=== PATIENT | male | born 1960 | race African-American/Black ===

== ENCOUNTER 2017-06-22 11:22 | Emergency (ER) | payer MEDICAID, OTHER ==
[~2017-06-22] VITALS: Ht 193 cm; Wt 122.7 kg
[2017-06-22] MEDS ORDERED: LIDOCAINE HCL/PF 1% 2 ML VIAL IM ONE (12:15)
[2017-06-22] MEDS ORDERED: CefTRIAXone SODIUM 1 GM/VIAL IM ONE (12:15)
[2017-06-22] MEDS ORDERED: IBUPROFEN 800 MG TABLET PO ONE (12:15)
[2017-06-22 12:30] VITALS: BP 141/66
== END 2017-06-22 13:06 | disposition home or self-care (01) ==
LOC: EMS 11:23
DX: L02.415 Cutaneous abscess of right lower limb (principal); L03.115 Cellulitis of right lower limb; L08.9 Local infection of the skin and subcutaneous tissue, unspecified; F17.210 Nicotine dependence, cigarettes, uncomplicated
CPT/HCPCS: 96372; 99283; J0696; J3490

== ENCOUNTER 2018-07-17 17:59 | Inpatient (IN) | payer MEDICAID, OTHER ==
[~2018-07-17] VITALS: Ht 182.9 cm; Wt 108.2 kg
[2018-07-17 19:57] LABS: BASOPHILS % (AUTO) 1.4 % (0.0-2.0); EOSINOPHILS % (AUTO) 4.7 % (1.0-6.0); HEMATOCRIT 43.4 % (41-53); HEMOGLOBIN 14.9 g/dL (13.5-17.5); LYMPHOCYTES # (AUTO) 1.6 K/uL (1.0-4.8); MEAN CORPUSCULAR HEMOGLOBIN 31.6 pg (26.0-34.0); MEAN CORPUSCULAR HGB CONC 34.3 G/dL (31.0-37.0); MEAN CORPUSCULAR VOLUME 92 fL (80-100); MONOCYTES # (AUTO) 0.5 K/uL (0.1-1.0); MONOCYTES % (AUTO) 7.3 % (2.0-9.0); NEUTROPHILS # (AUTO) 4.3 K/uL (1.8-7.7); NEUTROPHILS % (AUTO) 62.6 % (40.0-70.0); PLATELET COUNT (AUTO) 262 K/uL (150-450); RED BLOOD CELL COUNT(AUTO) 4.72 MIL/uL (4.50-5.90); RED CELL DISTRIBUTION WIDTH 13.8 % (11.5-14.5)
[2018-07-17 20:11] LABS: ANION GAP 7 mmol/L (8-16); CALCIUM, TOTAL 9.1 mg/dL (8.8-10.5); CARBON DIOXIDE 29 mmol/L (22-29); CHLORIDE 104 mmol/L (98-107); CREATININE 1.08 mg/dL (0.60-1.30); GLOMERULAR FILTR. RATE CALC > 60 mL/min (>60); GLUCOSE,RANDOM 105 mg/dL (70-110); POTASSIUM 3.8 mmol/L (3.5-5.1); SODIUM SERUM 140 mmol/L (136-145); UREA NITROGEN, BLOOD 17 mg/dL (7-18)
[2018-07-17 20:17] LABS: ALANINE AMINOTRANSFERASE 65 U/L (12-78); ALBUMIN 3.2 g/dL (3.4-5.0); ALKALINE PHOSPHATASE 65 U/L (46-116); ASPARTATE AMINOTRANSFERASE 81 U/L (15-37); BILIRUBIN,TOTAL 0.7 mg/dL (0.1-1.0); TOTAL PROTEIN, SERUM 7.3 g/dL (6.4-8.2)
[2018-07-17] MEDS ORDERED: HALOPERIDOL 5 MG TABLET PO PRN (20:45)
[2018-07-17] MEDS ORDERED: LORazepam 2 MG TABLET PO PRN (20:45)
[2018-07-17] MEDS ORDERED: ZOLPIDEM TARTRATE 10 MG TABLET PO PRN (20:45)
[2018-07-17 21:34] LABS: AMPHET/METH SCREEN,URINE NEGATIVE (NEGATIVE); BARBITURATE SCREEN, URINE NEGATIVE (NEGATIVE); BENZODIAZEPINES SCREEN,URINE NEGATIVE (NEGATIVE); CANNABINOID SCREEN,URINE POSITIVE (NEGATIVE); COCAINE SCREEN,URINE POSITIVE (NEGATIVE); METHADONE SCREEN, URINE NEGATIVE (NEGATIVE); OPIATE SCREEN,URINE NEGATIVE (NEGATIVE)
[2018-07-17 21:36] LABS: PHENCYCLIDINE SCREEN,URINE NEGATIVE (NEGATIVE)
[2018-07-17 21:48] VITALS: BP 121/69
[2018-07-18 06:04] VITALS: BP 121/73
[2018-07-18 07:37] LABS: HEMOGLOBIN A1C 5.6 % (4.5-6.2)
[2018-07-18 07:49] LABS: CHOL/HDL RATIO 2.6 (4.2-7.3); FREE T4 (FREE THYROXINE) 0.73 ng/dL (0.76-1.46); THYROID STIMULATING HORMONE 1.68 uIU/mL (0.36-3.74)
[2018-07-18 08:22] VITALS: BP 129/97
[2018-07-18 17:00] VITALS: BP 128/72
[2018-07-18] MEDS: RisperiDONE 1 MG TABLET PO SCH (17:26)
[2018-07-19 08:44] VITALS: BP 126/68
[2018-07-19] MEDS: RisperiDONE 1 MG TABLET PO SCH ×2 (08:53→17:27)
[2018-07-19] MEDS: SERTRALINE HCL 100 MG TABLET PO SCH (08:53)
[2018-07-19 17:30] VITALS: BP 124/71
[2018-07-20 06:13] VITALS: BP 115/62
[2018-07-20 06:27] LABS: ALANINE AMINOTRANSFERASE 45 U/L (12-78); ALBUMIN 3.1 g/dL (3.4-5.0); ALKALINE PHOSPHATASE 60 U/L (46-116); ANION GAP 8 mmol/L (8-16); ASPARTATE AMINOTRANSFERASE 29 U/L (15-37); BILIRUBIN,TOTAL 0.6 mg/dL (0.1-1.0); CALCIUM, TOTAL 9.2 mg/dL (8.8-10.5); CARBON DIOXIDE 28 mmol/L (22-29); CHLORIDE 103 mmol/L (98-107); CREATININE 1.06 mg/dL (0.60-1.30); GLOMERULAR FILTR. RATE CALC > 60 mL/min (>60); GLUCOSE,RANDOM 101 mg/dL (70-110); POTASSIUM 4.1 mmol/L (3.5-5.1); SODIUM SERUM 139 mmol/L (136-145); TOTAL PROTEIN, SERUM 7.3 g/dL (6.4-8.2); UREA NITROGEN, BLOOD 11 mg/dL (7-18)
[2018-07-20] MEDS: SERTRALINE HCL 100 MG TABLET PO SCH (08:53)
[2018-07-20] MEDS: RisperiDONE 1 MG TABLET PO SCH ×2 (08:53→16:51)
[2018-07-20] MEDS ORDERED: ACETAMINOPHEN 325 MG TABLET PO PRN (09:00)
[2018-07-20 09:18] VITALS: BP 120/68
[2018-07-20 17:00] VITALS: BP 135/62
[2018-07-21 06:46] VITALS: BP 120/73
[2018-07-21 08:36] VITALS: BP 146/65
[2018-07-21] MEDS: RisperiDONE 1 MG TABLET PO SCH (09:13)
[2018-07-21] MEDS: SERTRALINE HCL 100 MG TABLET PO SCH (09:13)
[2018-07-21] MEDS ORDERED: SERT100T12 PO (11:59)
[2018-07-21] MEDS ORDERED: RISP1 PO (11:59)
== END 2018-07-21 14:20 | disposition home or self-care (01) | DRG 750 ==
LOC: EMS 17:59 → 3EI 20:27
PROVIDERS: ADMIT Psychiatry & Neurology Psychiatry; ATTEND Psychiatry & Neurology Psychiatry
DX: F25.1 Schizoaffective disorder, depressive type (principal); R45.851 Suicidal ideations; Z91.14 Patient's other noncompliance with medication regimen; F12.10 Cannabis abuse, uncomplicated; F14.10 Cocaine abuse, uncomplicated; F41.9 Anxiety disorder, unspecified; K58.9 Irritable bowel syndrome, unspecified; F32.9 Major depressive disorder, single episode, unspecified; R79.89 Other specified abnormal findings of blood chemistry; M19.90 Unspecified osteoarthritis, unspecified site; N18.9 Chronic kidney disease, unspecified; F17.210 Nicotine dependence, cigarettes, uncomplicated; Z91.5 Personal history of self-harm; Z79.899 Other long term (current) drug therapy
CPT/HCPCS: 80074; 83036; 84439; 84443; G0480

== ENCOUNTER 2018-10-07 15:49 | Emergency (ER) | payer MEDICAID, OTHER ==
[~2018-10-07] VITALS: Ht 193 cm; Wt 120.5 kg
[~2018-10-07 15:49] MED LIST: RISP1 PO; SERT100T12 PO
[2018-10-07 18:34] VITALS: BP 128/86
== END 2018-10-07 18:46 | disposition home or self-care (01) ==
LOC: EMS 15:51
DX: Z01.812 Encounter for preprocedural laboratory examination (principal); F32.9 Major depressive disorder, single episode, unspecified; F20.9 Schizophrenia, unspecified; F17.210 Nicotine dependence, cigarettes, uncomplicated
CPT/HCPCS: 86480

== ENCOUNTER 2019-03-13 08:23 | Inpatient (IN) | payer MEDICAID, OTHER ==
[~2019-03-13] VITALS: Ht 193 cm; Wt 107.2 kg
[2019-03-13 09:11] LABS: BASOPHILS % (AUTO) 0.9 % (0.0-2.0); EOSINOPHILS % (AUTO) 7.4 % (1.0-6.0); HEMATOCRIT 45.1 % (41-53); HEMOGLOBIN 14.9 g/dL (13.5-17.5); LYMPHOCYTES # (AUTO) 1.2 K/uL (1.0-4.8); LYMPHOCYTES % (AUTO) 19.2 % (22.0-44.0); MEAN CORPUSCULAR HEMOGLOBIN 30.7 pg (26.0-34.0); MEAN CORPUSCULAR HGB CONC 33.1 G/dL (31.0-37.0); MEAN CORPUSCULAR VOLUME 93 fL (80-100); MONOCYTES # (AUTO) 0.5 K/uL (0.1-1.0); MONOCYTES % (AUTO) 8.4 % (2.0-9.0); NEUTROPHILS # (AUTO) 3.9 K/uL (1.8-7.7); NEUTROPHILS % (AUTO) 64.1 % (40.0-70.0); PLATELET COUNT (AUTO) 241 K/uL (150-450); RED BLOOD CELL COUNT(AUTO) 4.85 MIL/uL (4.50-5.90)
[2019-03-13 09:18] LABS: ANION GAP 6 mmol/L (8-16); CALCIUM, TOTAL 8.9 mg/dL (8.8-10.5); CARBON DIOXIDE 29 mmol/L (22-29); CHLORIDE 104 mmol/L (98-107); CREATININE 1.16 mg/dL (0.60-1.30); GLOMERULAR FILTR. RATE CALC > 60 mL/min (>60); GLUCOSE,RANDOM 82 mg/dL (70-110); POTASSIUM 3.7 mmol/L (3.5-5.1); SODIUM SERUM 139 mmol/L (136-145); UREA NITROGEN, BLOOD 10 mg/dL (7-18)
[2019-03-13 09:24] LABS: ALANINE AMINOTRANSFERASE 31 U/L (12-78); ALBUMIN 3.6 g/dL (3.4-5.0); ALKALINE PHOSPHATASE 58 U/L (46-116); ASPARTATE AMINOTRANSFERASE 28 U/L (15-37); BILIRUBIN,TOTAL 1.1 mg/dL (0.1-1.0)
[2019-03-13 10:43] LABS: AMPHET/METH SCREEN,URINE NEGATIVE (NEGATIVE); BARBITURATE SCREEN, URINE NEGATIVE (NEGATIVE); BENZODIAZEPINES SCREEN,URINE NEGATIVE (NEGATIVE); CANNABINOID SCREEN,URINE NEGATIVE (NEGATIVE); COCAINE SCREEN,URINE POSITIVE (NEGATIVE); METHADONE SCREEN, URINE NEGATIVE (NEGATIVE); OPIATE SCREEN,URINE NEGATIVE (NEGATIVE)
[2019-03-13 10:51] LABS: PHENCYCLIDINE SCREEN,URINE NEGATIVE (NEGATIVE)
[2019-03-13] MEDS ORDERED: ZOLPIDEM TARTRATE 10 MG TABLET PO PRN (11:45)
[2019-03-13] MEDS ORDERED: ONDANSETRON HCL 4 MG TABLET PO PRN (22:15)
[2019-03-13] MEDS ORDERED: ALBUTEROL SULFATE HFA 90 MCG/PUFF 8 GM INHALER IH PRN (22:15)
[2019-03-13] MEDS ORDERED: CloNIDine HCL 0.1 MG TABLET PO PRN (22:15)
[2019-03-13] MEDS ORDERED: MAGNESIUM HYDROXIDE SUSPENSION 30 ML UDCUP PO PRN (22:15)
[2019-03-13] MEDS ORDERED: GuaiFENesin/D-METHORPHAN [SUGAR-FREE] 200-20MG/10 ML SYRUP UDCUP PO PRN (22:15)
[2019-03-13] MEDS ORDERED: ACETAMINOPHEN 325 MG TABLET PO PRN (22:15)
[2019-03-13] MEDS ORDERED: NICOTINE 14 MG/24 HOUR PATCH TD PRN (22:15)
[2019-03-13] MEDS ORDERED: IBUPROFEN 400 MG TABLET PO PRN (22:15)
[2019-03-13] MEDS ORDERED: DOCUSATE SODIUM 100 MG CAPSULE PO PRN (22:15)
[2019-03-13] MEDS ORDERED: LOPERAMIDE HCL 2 MG CAPSULE PO PRN (22:15)
[2019-03-13] MEDS ORDERED: MAG HYDROX/AL HYDROX/SIMETH ES 30 ML SUSPENSION UDCUP PO PRN (22:15)
[2019-03-13] MEDS ORDERED: PETROLATUM,WHITE 28 GM JELLY TP PRN (22:15)
[2019-03-14 09:15] VITALS: BP 128/82
[2019-03-14] MEDS: LORazepam 2 MG TABLET PO PRN (09:17)
[2019-03-14] MEDS: HALOPERIDOL 5 MG TABLET PO PRN (09:17)
[2019-03-14] MEDS: SERTRALINE HCL 100 MG TABLET PO SCH (14:59)
[2019-03-14] MEDS: RisperiDONE 1 MG TABLET PO SCH (14:59)
[2019-03-14 16:27] VITALS: BP 115/59
[2019-03-15 10:00] VITALS: BP 126/72
[2019-03-15] MEDS: HALOPERIDOL 5 MG TABLET PO PRN (10:28)
[2019-03-15] MEDS: LORazepam 2 MG TABLET PO PRN (10:28)
[2019-03-15] MEDS: RisperiDONE 1 MG TABLET PO SCH (10:29)
[2019-03-15] MEDS: SERTRALINE HCL 100 MG TABLET PO SCH (10:29)
[2019-03-15 18:51] VITALS: BP 110/55
[2019-03-16] MEDS: RisperiDONE 1 MG TABLET PO SCH (08:34)
[2019-03-16] MEDS: HALOPERIDOL 5 MG TABLET PO PRN (08:34)
[2019-03-16] MEDS: SERTRALINE HCL 100 MG TABLET PO SCH (08:35)
[2019-03-16] MEDS: LORazepam 2 MG TABLET PO PRN (08:35)
[2019-03-16 12:41] VITALS: BP 129/61
== END 2019-03-16 15:00 | disposition home or self-care (01) | DRG 750 ==
LOC: EMS 08:25 → 3EI 12:44
PROVIDERS: ADMIT Psychiatry & Neurology Child & Adolescent Psychiatry; ATTEND Psychiatry & Neurology Child & Adolescent Psychiatry
DX: F25.9 Schizoaffective disorder, unspecified (principal); Z59.0 Homelessness; R45.851 Suicidal ideations; F14.10 Cocaine abuse, uncomplicated; Z91.14 Patient's other noncompliance with medication regimen; F17.200 Nicotine dependence, unspecified, uncomplicated; Z71.6 Tobacco abuse counseling; Z71.41 Alcohol abuse counseling and surveillance of alcoholic; Z91.5 Personal history of self-harm; K58.9 Irritable bowel syndrome, unspecified; F41.9 Anxiety disorder, unspecified; F32.9 Major depressive disorder, single episode, unspecified; Z79.899 Other long term (current) drug therapy
CPT/HCPCS: G0480

== ENCOUNTER 2019-04-21 08:29 | Inpatient (IN) | payer MEDICAID, OTHER ==
[~2019-04-21] VITALS: Ht 193 cm; Wt 106.0 kg
[2019-04-21 09:00] LABS: BASOPHILS % (AUTO) 0.8 % (0.0-2.0); EOSINOPHILS % (AUTO) 8.4 % (1.0-6.0); HEMATOCRIT 43.8 % (41-53); HEMOGLOBIN 14.8 g/dL (13.5-17.5); LYMPHOCYTES # (AUTO) 1.5 K/uL (1.0-4.8); LYMPHOCYTES % (AUTO) 26.6 % (22.0-44.0); MEAN CORPUSCULAR HEMOGLOBIN 30.8 pg (26.0-34.0); MEAN CORPUSCULAR HGB CONC 33.9 G/dL (31.0-37.0); MEAN CORPUSCULAR VOLUME 91 fL (80-100); MONOCYTES # (AUTO) 0.4 K/uL (0.1-1.0); MONOCYTES % (AUTO) 7.3 % (2.0-9.0); NEUTROPHILS # (AUTO) 3.3 K/uL (1.8-7.7); NEUTROPHILS % (AUTO) 56.9 % (40.0-70.0); PLATELET COUNT (AUTO) 246 K/uL (150-450); RED BLOOD CELL COUNT(AUTO) 4.81 MIL/uL (4.50-5.90)
[2019-04-21 09:01] LABS: APPEARANCE,URINE CLEAR (CLEAR); BILIRUBIN,URINE NEGATIVE (NEGATIVE); GLUCOSE, URINE (UA) NEGATIVE (NEGATIVE); KETONES,URINE NEGATIVE (NEGATIVE); LEUKOCYTE ESTERASE ,URINE NEGATIVE (NEGATIVE); NITRATE,URINE NEGATIVE (NEGATIVE); OCCULT BLOOD,URINE TRACE (NEGATIVE); PROTEIN,URINE NEGATIVE (NEGATIVE)
[2019-04-21 09:17] LABS: ANION GAP 7 mmol/L (8-16); CALCIUM, TOTAL 9.5 mg/dL (8.8-10.5); CARBON DIOXIDE 28 mmol/L (22-29); CHLORIDE 104 mmol/L (98-107); CREATININE 1.11 mg/dL (0.60-1.30); GLOMERULAR FILTR. RATE CALC > 60 mL/min (>60); GLUCOSE,RANDOM 96 mg/dL (70-110); POTASSIUM 3.6 mmol/L (3.5-5.1); SODIUM SERUM 139 mmol/L (136-145)
[2019-04-21 09:17] LABS: BACTERIA,URINE None Seen /HPF (None Seen); RBC,URINE 0-2 /HPF (0-2); SQUAMOUS EPITHELIAL CELL,UR Few /LPF (None Seen); WBC,URINE 0-2 /HPF (0-5)
[2019-04-21 09:28] LABS: ALANINE AMINOTRANSFERASE 28 U/L (12-78); ALBUMIN 3.5 g/dL (3.4-5.0); ALKALINE PHOSPHATASE 63 U/L (46-116); BILIRUBIN,TOTAL 0.7 mg/dL (0.1-1.0); TOTAL PROTEIN, SERUM 7.3 g/dL (6.4-8.2); UREA NITROGEN, BLOOD 11 mg/dL (7-18)
[2019-04-21 09:37] LABS: ASPARTATE AMINOTRANSFERASE 25 U/L (15-37)
[2019-04-21 09:52] LABS: AMPHET/METH SCREEN,URINE NEGATIVE (NEGATIVE); BARBITURATE SCREEN, URINE NEGATIVE (NEGATIVE); BENZODIAZEPINES SCREEN,URINE NEGATIVE (NEGATIVE); CANNABINOID SCREEN,URINE POSITIVE (NEGATIVE); COCAINE SCREEN,URINE POSITIVE (NEGATIVE); METHADONE SCREEN, URINE NEGATIVE (NEGATIVE); OPIATE SCREEN,URINE NEGATIVE (NEGATIVE)
[2019-04-21 09:56] LABS: PHENCYCLIDINE SCREEN,URINE NEGATIVE (NEGATIVE)
[2019-04-21] MEDS ORDERED: HALOPERIDOL 5 MG TABLET PO PRN (10:15)
[2019-04-21] MEDS ORDERED: LORazepam 2 MG TABLET PO PRN (10:15)
[2019-04-21] MEDS ORDERED: ZOLPIDEM TARTRATE 10 MG TABLET PO PRN (10:15)
[2019-04-21 12:26] VITALS: BP 137/65
[2019-04-21 12:59] VITALS: BP 137/65
[2019-04-21 17:01] VITALS: BP 132/81
[2019-04-22 06:47] LABS: CHOL/HDL RATIO 3.4 (4.2-7.3); FREE T4 (FREE THYROXINE) 0.87 ng/dL (0.76-1.46); THYROID STIMULATING HORMONE 3.64 uIU/mL (0.36-3.74)
[2019-04-22 08:46] VITALS: BP 138/82
[2019-04-22] MEDS: NICOTINE 21 MG/24 HOUR PATCH TD SCH (09:03)
[2019-04-22] MEDS ORDERED: LOPERAMIDE HCL 2 MG CAPSULE PO PRN (11:00)
[2019-04-22] MEDS ORDERED: ACETAMINOPHEN 325 MG TABLET PO PRN (11:00)
[2019-04-22] MEDS ORDERED: GuaiFENesin/D-METHORPHAN [SUGAR-FREE] 200-20MG/10 ML SYRUP UDCUP PO PRN (11:00)
[2019-04-22] MEDS ORDERED: MAGNESIUM HYDROXIDE SUSPENSION 30 ML UDCUP PO PRN (11:00)
[2019-04-22] MEDS ORDERED: MAG HYDROX/AL HYDROX/SIMETH ES 30 ML SUSPENSION UDCUP PO PRN (11:00)
[2019-04-22] MEDS ORDERED: DOCUSATE SODIUM 100 MG CAPSULE PO PRN (11:00)
[2019-04-22] MEDS ORDERED: PETROLATUM,WHITE 28 GM JELLY TP PRN (11:00)
[2019-04-22] MEDS ORDERED: NICOTINE 14 MG/24 HOUR PATCH TD PRN (11:00)
[2019-04-22] MEDS ORDERED: ALBUTEROL SULFATE HFA 90 MCG/PUFF 8 GM INHALER IH PRN (11:00)
[2019-04-22] MEDS ORDERED: CloNIDine HCL 0.1 MG TABLET PO PRN (11:00)
[2019-04-22] MEDS ORDERED: ONDANSETRON HCL 4 MG TABLET PO PRN (11:00)
[2019-04-22] MEDS ORDERED: IBUPROFEN 400 MG TABLET PO PRN (11:00)
[2019-04-22] MEDS ORDERED: BUPR-93 PO (12:13)
[2019-04-22] MEDS ORDERED: OLAN5TAB2 PO (12:13)
[2019-04-22] MEDS: BuPROPion HCL XL 150 MG ER TABLET PO SCH (14:01)
[2019-04-22] MEDS: OLANZapine 5 MG TABLET PO SCH (17:47)
[2019-04-22 17:56] VITALS: BP 119/67
[2019-04-23] MEDS ORDERED: INFLUENZA VIRUS VACCINE QVS 2019-20 (3YR+)/PF 60 MCG/0.5 ML SYRINGE IM ONE (08:00)
[2019-04-23 08:44] VITALS: BP 134/62
[2019-04-23] MEDS: OLANZapine 5 MG TABLET PO SCH ×2 (09:20→17:02)
[2019-04-23] MEDS: BuPROPion HCL XL 150 MG ER TABLET PO SCH (09:20)
[2019-04-23] MEDS: NICOTINE 21 MG/24 HOUR PATCH TD SCH (09:24)
[2019-04-23 16:54] VITALS: BP 126/71
[2019-04-24] MEDS: OLANZapine 5 MG TABLET PO SCH (09:13)
[2019-04-24] MEDS: BuPROPion HCL XL 150 MG ER TABLET PO SCH (09:14)
[2019-04-24] MEDS ORDERED: BUPR-47 PO (09:17)
[2019-04-24] MEDS ORDERED: OLAN5TAB27 PO (09:17)
[2019-04-24 09:18] VITALS: BP 150/66
[2019-04-24] MEDS: NICOTINE 21 MG/24 HOUR PATCH TD SCH (09:18)
== END 2019-04-24 11:45 | disposition home or self-care (01) | DRG 750 ==
LOC: EMS 08:30 → 3EI 10:48
PROVIDERS: ADMIT Psychiatry & Neurology Child & Adolescent Psychiatry; ATTEND Psychiatry & Neurology Child & Adolescent Psychiatry
DX: F25.1 Schizoaffective disorder, depressive type (principal); E87.2 Acidosis; R45.851 Suicidal ideations; Z23 Encounter for immunization; F10.10 Alcohol abuse, uncomplicated; F12.10 Cannabis abuse, uncomplicated; F14.10 Cocaine abuse, uncomplicated; F17.200 Nicotine dependence, unspecified, uncomplicated; K21.9 Gastro-esophageal reflux disease without esophagitis; K44.9 Diaphragmatic hernia without obstruction or gangrene; K58.9 Irritable bowel syndrome, unspecified; Z79.899 Other long term (current) drug therapy; F41.9 Anxiety disorder, unspecified
CPT/HCPCS: 84439; 84443; 90471; 90686; G0480

== ENCOUNTER 2019-04-28 07:10 | Inpatient (IN) | payer MEDICAID, OTHER ==
[~2019-04-28] VITALS: Ht 193 cm; Wt 108.4 kg
[~2019-04-28 07:10] MED LIST changes: +BUPR-47 PO; +OLAN5TAB27 PO; -RISP1 PO; -SERT100T12 PO
[2019-04-28] MEDS ORDERED: RISP1 PO (07:15)
[2019-04-28] MEDS ORDERED: SERT50TA12 PO (07:15)
[2019-04-28 07:58] LABS: APPEARANCE,URINE CLEAR (CLEAR); BILIRUBIN,URINE NEGATIVE (NEGATIVE); GLUCOSE, URINE (UA) NEGATIVE (NEGATIVE); KETONES,URINE NEGATIVE (NEGATIVE); LEUKOCYTE ESTERASE ,URINE NEGATIVE (NEGATIVE); NITRATE,URINE NEGATIVE (NEGATIVE); OCCULT BLOOD,URINE TRACE (NEGATIVE); PH,URINE 5.5 (5.0-8.0); PROTEIN,URINE NEGATIVE (NEGATIVE); UROBILINOGEN,URINE 0.2 mg/dL (<=1.0)
[2019-04-28 08:08] LABS: BASOPHILS % (AUTO) 1.1 % (0.0-2.0); EOSINOPHILS % (AUTO) 5.7 % (1.0-6.0); HEMATOCRIT 42.5 % (41-53); HEMOGLOBIN 14.3 g/dL (13.5-17.5); LYMPHOCYTES # (AUTO) 1.5 K/uL (1.0-4.8); LYMPHOCYTES % (AUTO) 21.7 % (22.0-44.0); MEAN CORPUSCULAR HGB CONC 33.6 G/dL (31.0-37.0); MEAN CORPUSCULAR VOLUME 93 fL (80-100); MONOCYTES # (AUTO) 0.7 K/uL (0.1-1.0); MONOCYTES % (AUTO) 10.5 % (2.0-9.0); NEUTROPHILS # (AUTO) 4.1 K/uL (1.8-7.7); PLATELET COUNT (AUTO) 221 K/uL (150-450); RED CELL DISTRIBUTION WIDTH 14.2 % (11.5-14.5)
[2019-04-28 08:11] LABS: AMPHET/METH SCREEN,URINE NEGATIVE (NEGATIVE); BARBITURATE SCREEN, URINE NEGATIVE (NEGATIVE); BENZODIAZEPINES SCREEN,URINE NEGATIVE (NEGATIVE); CANNABINOID SCREEN,URINE POSITIVE (NEGATIVE); COCAINE SCREEN,URINE POSITIVE (NEGATIVE); METHADONE SCREEN, URINE NEGATIVE (NEGATIVE); OPIATE SCREEN,URINE NEGATIVE (NEGATIVE)
[2019-04-28 08:13] LABS: BACTERIA,URINE None Seen /HPF (None Seen); PHENCYCLIDINE SCREEN,URINE NEGATIVE (NEGATIVE); RBC,URINE 0-2 /HPF (0-2); SQUAMOUS EPITHELIAL CELL,UR Few /LPF (None Seen)
[2019-04-28 08:19] LABS: ANION GAP 8 mmol/L (8-16); CALCIUM, TOTAL 8.8 mg/dL (8.8-10.5); CARBON DIOXIDE 30 mmol/L (22-29); CHLORIDE 106 mmol/L (98-107); CREATININE 1.26 mg/dL (0.60-1.30); GLOMERULAR FILTR. RATE CALC > 60 mL/min (>60); GLUCOSE,RANDOM 82 mg/dL (70-110); POTASSIUM 3.9 mmol/L (3.5-5.1); SODIUM SERUM 144 mmol/L (136-145); UREA NITROGEN, BLOOD 17 mg/dL (7-18)
[2019-04-28 08:22] LABS: ALANINE AMINOTRANSFERASE 39 U/L (12-78); ALBUMIN 3.4 g/dL (3.4-5.0); ALKALINE PHOSPHATASE 62 U/L (46-116); ASPARTATE AMINOTRANSFERASE 39 U/L (15-37); BILIRUBIN,TOTAL 0.5 mg/dL (0.1-1.0); TOTAL PROTEIN, SERUM 7.1 g/dL (6.4-8.2)
[2019-04-28] MEDS: OLANZapine 5 MG TABLET PO SCH ×2 (09:15→16:44)
[2019-04-28] MEDS ORDERED: LORazepam 2 MG TABLET PO PRN (09:15)
[2019-04-28] MEDS ORDERED: HALOPERIDOL 5 MG TABLET PO PRN (09:15)
[2019-04-28] MEDS ORDERED: ZOLPIDEM TARTRATE 10 MG TABLET PO PRN (09:15)
[2019-04-28] MEDS: RisperiDONE 1 MG TABLET PO ONE ×2 (09:15→12:57)
[2019-04-28 10:56] VITALS: BP 131/71
[2019-04-28] MEDS ORDERED: ONDANSETRON HCL 4 MG TABLET PO PRN (11:45)
[2019-04-28] MEDS ORDERED: GuaiFENesin/D-METHORPHAN [SUGAR-FREE] 200-20MG/10 ML SYRUP UDCUP PO PRN (11:45)
[2019-04-28] MEDS ORDERED: MAGNESIUM HYDROXIDE SUSPENSION 30 ML UDCUP PO PRN (11:45)
[2019-04-28] MEDS ORDERED: PETROLATUM,WHITE 28 GM JELLY TP PRN (11:45)
[2019-04-28] MEDS ORDERED: ALBUTEROL SULFATE HFA 90 MCG/PUFF 8 GM INHALER IH PRN (11:45)
[2019-04-28] MEDS ORDERED: MAG HYDROX/AL HYDROX/SIMETH ES 30 ML SUSPENSION UDCUP PO PRN (11:45)
[2019-04-28] MEDS ORDERED: NICOTINE 14 MG/24 HOUR PATCH TD PRN (11:45)
[2019-04-28] MEDS ORDERED: CloNIDine HCL 0.1 MG TABLET PO PRN (11:45)
[2019-04-28] MEDS ORDERED: LOPERAMIDE HCL 2 MG CAPSULE PO PRN (11:45)
[2019-04-28] MEDS ORDERED: ACETAMINOPHEN 325 MG TABLET PO PRN (11:45)
[2019-04-28] MEDS ORDERED: DOCUSATE SODIUM 100 MG CAPSULE PO PRN (11:45)
[2019-04-28 18:09] VITALS: BP 132/59
[2019-04-29 01:20] VITALS: BP 135/76
[2019-04-29 04:52] VITALS: BP 136/75
[2019-04-29] MEDS: IBUPROFEN 400 MG TABLET PO PRN (04:58)
[2019-04-29 06:11] LABS: BASOPHILS % (AUTO) 0.9 % (0.0-2.0); EOSINOPHILS % (AUTO) 9.8 % (1.0-6.0); HEMATOCRIT 42.2 % (41-53); LYMPHOCYTES # (AUTO) 1.7 K/uL (1.0-4.8); LYMPHOCYTES % (AUTO) 32.7 % (22.0-44.0); MEAN CORPUSCULAR HEMOGLOBIN 30.6 pg (26.0-34.0); MEAN CORPUSCULAR HGB CONC 33.1 G/dL (31.0-37.0); MEAN CORPUSCULAR VOLUME 92 fL (80-100); MONOCYTES # (AUTO) 0.4 K/uL (0.1-1.0); MONOCYTES % (AUTO) 8.7 % (2.0-9.0); NEUTROPHILS # (AUTO) 2.4 K/uL (1.8-7.7); NEUTROPHILS % (AUTO) 47.9 % (40.0-70.0); PLATELET COUNT (AUTO) 216 K/uL (150-450); RED BLOOD CELL COUNT(AUTO) 4.57 MIL/uL (4.50-5.90); RED CELL DISTRIBUTION WIDTH 14.3 % (11.5-14.5)
[2019-04-29 06:22] LABS: HEMOGLOBIN A1C 6.1 % (4.5-6.2)
[2019-04-29 06:34] LABS: ALANINE AMINOTRANSFERASE 24 U/L (12-78); ALBUMIN 2.9 g/dL (3.4-5.0); ALKALINE PHOSPHATASE 55 U/L (46-116); ANION GAP 7 mmol/L (8-16); ASPARTATE AMINOTRANSFERASE 23 U/L (15-37); BILIRUBIN,TOTAL 0.4 mg/dL (0.1-1.0); CALCIUM, TOTAL 8.6 mg/dL (8.8-10.5); CARBON DIOXIDE 27 mmol/L (22-29); CHLORIDE 107 mmol/L (98-107); CHOL/HDL RATIO 3.8 (4.2-7.3); CHOLESTEROL 171 mg/dL (131-200); CREATININE 1.21 mg/dL (0.60-1.30); GLOMERULAR FILTR. RATE CALC > 60 mL/min (>60); GLUCOSE,RANDOM 157 mg/dL (70-110); HDL CHOLESTEROL 45 mg/dL (40-60); LDL CHOL (CALC.) 110 mg/dL (0-130); POTASSIUM 3.8 mmol/L (3.5-5.1); SODIUM SERUM 141 mmol/L (136-145); THYROID STIMULATING HORMONE 2.75 uIU/mL (0.36-3.74); TOTAL PROTEIN, SERUM 5.7 g/dL (6.4-8.2); TRIGLYCERIDES 79 mg/dL (15-150); UREA NITROGEN, BLOOD 12 mg/dL (7-18)
[2019-04-29 08:00] VITALS: BP 133/75
[2019-04-29] MEDS: OLANZapine 5 MG TABLET PO SCH ×2 (09:57→17:25)
[2019-04-29] MEDS: BuPROPion HCL XL 150 MG ER TABLET PO SCH (09:57)
[2019-04-29] MEDS: SERTRALINE HCL 50 MG TABLET PO SCH (09:58)
[2019-04-29 17:17] VITALS: BP 131/81
[2019-04-29] MEDS: MUPIROCIN CALCIUM 2% 22 GM OINTMENT NASAL SCH (17:25)
[2019-04-30 02:12] VITALS: BP 140/81
[2019-04-30] MEDS: BuPROPion HCL XL 150 MG ER TABLET PO SCH (09:10)
[2019-04-30] MEDS: OLANZapine 5 MG TABLET PO SCH ×2 (09:10→17:01)
[2019-04-30] MEDS: SERTRALINE HCL 50 MG TABLET PO SCH (09:10)
[2019-04-30] MEDS: MUPIROCIN CALCIUM 2% 22 GM OINTMENT NASAL SCH ×2 (09:11→17:01)
[2019-04-30 09:21] VITALS: BP 121/66
[2019-04-30 16:45] VITALS: BP 144/71
[2019-05-01 02:02] VITALS: BP 123/77
[2019-05-01] MEDS: MUPIROCIN CALCIUM 2% 22 GM OINTMENT NASAL SCH ×2 (08:46→16:18)
[2019-05-01] MEDS: SERTRALINE HCL 50 MG TABLET PO SCH (08:46)
[2019-05-01] MEDS: BuPROPion HCL XL 150 MG ER TABLET PO SCH (08:46)
[2019-05-01] MEDS: OLANZapine 5 MG TABLET PO SCH ×2 (08:46→16:18)
[2019-05-01 09:52] VITALS: BP 148/63
[2019-05-01 16:59] VITALS: BP 137/78
[2019-05-02 06:39] VITALS: BP 126/82
[2019-05-02] MEDS: SERTRALINE HCL 50 MG TABLET PO SCH (08:54)
[2019-05-02] MEDS: MUPIROCIN CALCIUM 2% 22 GM OINTMENT NASAL SCH ×2 (08:54→16:09)
[2019-05-02] MEDS: BuPROPion HCL XL 150 MG ER TABLET PO SCH (08:54)
[2019-05-02] MEDS: OLANZapine 5 MG TABLET PO SCH ×2 (08:54→16:08)
[2019-05-02 09:35] VITALS: BP 132/68
[2019-05-02] MEDS: IBUPROFEN 400 MG TABLET PO PRN (09:38)
[2019-05-02] MEDS ORDERED: BUPR-93 PO (13:23)
[2019-05-02] MEDS ORDERED: OLAN5TAB27 PO (13:23)
[2019-05-02] MEDS ORDERED: MUPI15CR12 NASAL (13:29)
== END 2019-05-02 17:05 | disposition home or self-care (01) | DRG 750 ==
LOC: EMS 07:11 → 3EI 09:54
PROVIDERS: ADMIT Psychiatry & Neurology Child & Adolescent Psychiatry; ATTEND Psychiatry & Neurology Child & Adolescent Psychiatry
DX: F25.1 Schizoaffective disorder, depressive type (principal); R45.851 Suicidal ideations; Z59.0 Homelessness; F10.10 Alcohol abuse, uncomplicated; F17.200 Nicotine dependence, unspecified, uncomplicated; F31.9 Bipolar disorder, unspecified; K21.9 Gastro-esophageal reflux disease without esophagitis; K58.9 Irritable bowel syndrome, unspecified
CPT/HCPCS: 83036; 84443; 87081; G0480

== ENCOUNTER 2019-05-19 16:43 | Inpatient (IN) | payer MEDICAID, OTHER ==
[~2019-05-19] VITALS: Ht 193 cm; Wt 112.7 kg
[~2019-05-19 16:43] MED LIST changes: -BUPR-47 PO; +BUPR-93 PO; +MUPI15CR12 NASAL; +SERT50TA12 PO
[2019-05-19] MEDS ORDERED: ACETAMINOPHEN 500 MG TABLET PO ONE (17:45)
[2019-05-19] MEDS ORDERED: HALOPERIDOL 5 MG TABLET PO ONE (17:45)
[2019-05-19 18:11] LABS: BASOPHILS % (AUTO) 1.3 % (0.0-2.0); EOSINOPHILS % (AUTO) 9.1 % (1.0-6.0); HEMATOCRIT 43.3 % (41-53); HEMOGLOBIN 14.6 g/dL (13.5-17.5); LYMPHOCYTES # (AUTO) 1.7 K/uL (1.0-4.8); LYMPHOCYTES % (AUTO) 28.1 % (22.0-44.0); MEAN CORPUSCULAR HEMOGLOBIN 30.4 pg (26.0-34.0); MEAN CORPUSCULAR HGB CONC 33.6 G/dL (31.0-37.0); MEAN CORPUSCULAR VOLUME 90 fL (80-100); MONOCYTES # (AUTO) 0.6 K/uL (0.1-1.0); MONOCYTES % (AUTO) 9.4 % (2.0-9.0); NEUTROPHILS # (AUTO) 3.2 K/uL (1.8-7.7); NEUTROPHILS % (AUTO) 52.1 % (40.0-70.0); PLATELET COUNT (AUTO) 210 K/uL (150-450); RED BLOOD CELL COUNT(AUTO) 4.79 MIL/uL (4.50-5.90); RED CELL DISTRIBUTION WIDTH 14.2 % (11.5-14.5)
[2019-05-19 18:12] LABS: ANION GAP 10 mmol/L (8-16); CALCIUM, TOTAL 8.8 mg/dL (8.8-10.5); CARBON DIOXIDE 28 mmol/L (22-29); CHLORIDE 107 mmol/L (98-107); GLOMERULAR FILTR. RATE CALC > 60 mL/min (>60); GLUCOSE,RANDOM 89 mg/dL (70-110); POTASSIUM 3.9 mmol/L (3.5-5.1); SODIUM SERUM 145 mmol/L (136-145); UREA NITROGEN, BLOOD 18 mg/dL (7-18)
[2019-05-19 18:18] LABS: ALANINE AMINOTRANSFERASE 37 U/L (12-78); ALBUMIN 3.2 g/dL (3.4-5.0); ALKALINE PHOSPHATASE 75 U/L (46-116); ASPARTATE AMINOTRANSFERASE 27 U/L (15-37); BILIRUBIN,TOTAL 0.7 mg/dL (0.1-1.0); TOTAL PROTEIN, SERUM 6.8 g/dL (6.4-8.2)
[2019-05-19 18:25] LABS: AMPHET/METH SCREEN,URINE NEGATIVE (NEGATIVE); BARBITURATE SCREEN, URINE NEGATIVE (NEGATIVE); BENZODIAZEPINES SCREEN,URINE NEGATIVE (NEGATIVE); CANNABINOID SCREEN,URINE POSITIVE (NEGATIVE); COCAINE SCREEN,URINE POSITIVE (NEGATIVE); METHADONE SCREEN, URINE NEGATIVE (NEGATIVE); OPIATE SCREEN,URINE NEGATIVE (NEGATIVE)
[2019-05-19 18:27] LABS: PHENCYCLIDINE SCREEN,URINE NEGATIVE (NEGATIVE)
[2019-05-19] MEDS ORDERED: ZOLPIDEM TARTRATE 10 MG TABLET PO PRN (20:15)
[2019-05-19] MEDS ORDERED: HALOPERIDOL 5 MG TABLET PO PRN (20:15)
[2019-05-19] MEDS ORDERED: LORazepam 2 MG TABLET PO PRN (20:15)
[2019-05-19 21:19] VITALS: BP 143/69
[2019-05-20 06:00] VITALS: BP 139/80
[2019-05-20 07:00] LABS: CHOL/HDL RATIO 4.4 (4.2-7.3)
[2019-05-20 09:57] VITALS: BP 151/99
[2019-05-20] MEDS: MUPIROCIN CALCIUM 2% 15 GM CREAM TP SCH ×2 (09:59→17:13)
[2019-05-20] MEDS ORDERED: LOPERAMIDE HCL 2 MG CAPSULE PO PRN (12:00)
[2019-05-20] MEDS ORDERED: ONDANSETRON HCL 4 MG TABLET PO PRN (12:00)
[2019-05-20] MEDS ORDERED: IBUPROFEN 400 MG TABLET PO PRN (12:00)
[2019-05-20] MEDS ORDERED: GuaiFENesin/D-METHORPHAN [SUGAR-FREE] 200-20MG/10 ML SYRUP UDCUP PO PRN (12:00)
[2019-05-20] MEDS ORDERED: CloNIDine HCL 0.1 MG TABLET PO PRN (12:00)
[2019-05-20] MEDS ORDERED: MAG HYDROX/AL HYDROX/SIMETH ES 30 ML SUSPENSION UDCUP PO PRN (12:00)
[2019-05-20] MEDS ORDERED: ALBUTEROL SULFATE HFA 90 MCG/PUFF 8 GM INHALER IH PRN (12:00)
[2019-05-20] MEDS ORDERED: ACETAMINOPHEN 325 MG TABLET PO PRN (12:00)
[2019-05-20] MEDS ORDERED: PETROLATUM,WHITE 28 GM JELLY TP PRN (12:00)
[2019-05-20] MEDS ORDERED: DOCUSATE SODIUM 100 MG CAPSULE PO PRN (12:00)
[2019-05-20] MEDS ORDERED: MAGNESIUM HYDROXIDE SUSPENSION 30 ML UDCUP PO PRN (12:00)
[2019-05-20] MEDS ORDERED: NICOTINE 14 MG/24 HOUR PATCH TD PRN (12:00)
[2019-05-20 16:30] VITALS: BP 139/83
[2019-05-20] MEDS: SERTRALINE HCL 50 MG TABLET PO SCH (21:00)
[2019-05-21 05:15] VITALS: BP 133/83
[2019-05-21 08:00] VITALS: BP 121/83
[2019-05-21] MEDS: AmLODIPine BESYLATE 2.5 MG TABLET PO SCH (09:57)
[2019-05-21] MEDS: MUPIROCIN CALCIUM 2% 15 GM CREAM TP SCH ×2 (09:57→16:37)
[2019-05-21] MEDS: BuPROPion HCL XL 150 MG ER TABLET PO SCH (09:57)
[2019-05-21 17:12] VITALS: BP 138/74
[2019-05-21] MEDS: SERTRALINE HCL 50 MG TABLET PO SCH (20:37)
[2019-05-22 03:01] VITALS: BP 120/80
[2019-05-22 08:02] VITALS: BP 133/81
[2019-05-22] MEDS: BuPROPion HCL XL 150 MG ER TABLET PO SCH (09:21)
[2019-05-22] MEDS: AmLODIPine BESYLATE 2.5 MG TABLET PO SCH (09:21)
[2019-05-22] MEDS: MUPIROCIN CALCIUM 2% 15 GM CREAM TP SCH ×2 (09:21→17:04)
[2019-05-22 18:37] VITALS: BP 99/69
[2019-05-22] MEDS: SERTRALINE HCL 50 MG TABLET PO SCH (21:10)
[2019-05-23 02:50] VITALS: BP 122/69
[2019-05-23 08:00] VITALS: BP 124/71
[2019-05-23] MEDS: AmLODIPine BESYLATE 2.5 MG TABLET PO SCH (09:15)
[2019-05-23] MEDS: MUPIROCIN CALCIUM 2% 15 GM CREAM TP SCH ×2 (09:15→17:13)
[2019-05-23] MEDS: BuPROPion HCL XL 150 MG ER TABLET PO SCH (09:15)
[2019-05-23 18:38] VITALS: BP 126/69
[2019-05-23] MEDS: SERTRALINE HCL 50 MG TABLET PO SCH (21:08)
[2019-05-24 04:09] VITALS: BP 110/60
[2019-05-24 09:30] VITALS: BP 131/75
[2019-05-24] MEDS: AmLODIPine BESYLATE 2.5 MG TABLET PO SCH (09:40)
[2019-05-24] MEDS: BuPROPion HCL XL 150 MG ER TABLET PO SCH (09:40)
[2019-05-24] MEDS: MUPIROCIN CALCIUM 2% 15 GM CREAM TP SCH (09:41)
[2019-05-24] MEDS ORDERED: AMLO2.5T4 PO (14:46)
== END 2019-05-24 15:30 | disposition home or self-care (01) | DRG 750 ==
LOC: EMS 16:45 → 3EI 20:30
PROVIDERS: ADMIT Psychiatry & Neurology Psychiatry; ATTEND Psychiatry & Neurology Psychiatry
DX: F20.0 Paranoid schizophrenia (principal); R45.851 Suicidal ideations; Z91.14 Patient's other noncompliance with medication regimen; E78.5 Hyperlipidemia, unspecified; K21.9 Gastro-esophageal reflux disease without esophagitis; K58.9 Irritable bowel syndrome, unspecified; F17.210 Nicotine dependence, cigarettes, uncomplicated; F10.10 Alcohol abuse, uncomplicated; F32.9 Major depressive disorder, single episode, unspecified; F41.9 Anxiety disorder, unspecified; Z79.899 Other long term (current) drug therapy; Z71.51 Drug abuse counseling and surveillance of drug abuser; Z71.41 Alcohol abuse counseling and surveillance of alcoholic
CPT/HCPCS: 87081; G0480

== ENCOUNTER 2019-09-30 07:06 | Inpatient (IN) | payer MEDICAID, OTHER ==
[~2019-09-30] VITALS: Ht 193 cm; Wt 121.2 kg
[~2019-09-30 07:06] MED LIST changes: +AMLO2.5T4 PO; -MUPI15CR12 NASAL; -OLAN5TAB27 PO
[2019-09-30] MEDS ORDERED: GABA-529 PO (07:15)
[2019-09-30 07:41] LABS: BASOPHILS % (AUTO) 1.1 % (0.0-2.0); EOSINOPHILS % (AUTO) 2.5 % (1.0-6.0); HEMATOCRIT 44.7 % (41-53); LYMPHOCYTES # (AUTO) 2.1 K/uL (1.0-4.8); MEAN CORPUSCULAR HEMOGLOBIN 30.7 pg (26.0-34.0); MEAN CORPUSCULAR HGB CONC 33.6 G/dL (31.0-37.0); MEAN CORPUSCULAR VOLUME 91 fL (80-100); MONOCYTES # (AUTO) 0.8 K/uL (0.1-1.0); NEUTROPHILS # (AUTO) 5.6 K/uL (1.8-7.7); NEUTROPHILS % (AUTO) 63.4 % (40.0-70.0); PLATELET COUNT (AUTO) 244 K/uL (150-450); RED BLOOD CELL COUNT(AUTO) 4.89 MIL/uL (4.50-5.90); RED CELL DISTRIBUTION WIDTH 14.7 % (11.5-14.5)
[2019-09-30 07:52] LABS: ANION GAP 10 mmol/L (8-16); CALCIUM, TOTAL 9.9 mg/dL (8.8-10.5); CARBON DIOXIDE 26 mmol/L (22-29); CHLORIDE 99 mmol/L (98-107); CREATININE 1.48 mg/dL (0.60-1.30); GLOMERULAR FILTR. RATE CALC 59 mL/min (>60); GLUCOSE,RANDOM 66 mg/dL (70-110); POTASSIUM 4.6 mmol/L (3.5-5.1); SODIUM SERUM 135 mmol/L (136-145); UREA NITROGEN, BLOOD 17 mg/dL (7-18)
[2019-09-30 07:57] LABS: ALANINE AMINOTRANSFERASE 44 U/L (12-78); ALBUMIN 4.3 g/dL (3.4-5.0); ALKALINE PHOSPHATASE 60 U/L (46-116); ASPARTATE AMINOTRANSFERASE 38 U/L (15-37); BILIRUBIN,TOTAL 1.3 mg/dL (0.1-1.0); TOTAL PROTEIN, SERUM 8.1 g/dL (6.4-8.2)
[2019-09-30 09:08] LABS: AMPHET/METH SCREEN,URINE NEGATIVE (NEGATIVE); BARBITURATE SCREEN, URINE NEGATIVE (NEGATIVE); BENZODIAZEPINES SCREEN,URINE NEGATIVE (NEGATIVE); CANNABINOID SCREEN,URINE POSITIVE (NEGATIVE); COCAINE SCREEN,URINE POSITIVE (NEGATIVE); METHADONE SCREEN, URINE NEGATIVE (NEGATIVE); OPIATE SCREEN,URINE NEGATIVE (NEGATIVE)
[2019-09-30 09:15] LABS: PHENCYCLIDINE SCREEN,URINE NEGATIVE (NEGATIVE)
[2019-09-30] MEDS ORDERED: LORazepam 2 MG TABLET PO PRN (09:15)
[2019-09-30] MEDS ORDERED: HALOPERIDOL 5 MG TABLET PO PRN (09:15)
[2019-09-30] MEDS ORDERED: ZOLPIDEM TARTRATE 10 MG TABLET PO PRN (09:15)
[2019-09-30 11:09] VITALS: BP 134/76
[2019-09-30] MEDS ORDERED: -PHARMACY VACCINE NOTE- MISC ONE (14:45)
[2019-09-30] MEDS: NICOTINE 7 MG/24 HOUR PATCH TD SCH (15:02)
[2019-09-30 18:08] VITALS: BP 110/70
[2019-10-01] MEDS: NICOTINE 7 MG/24 HOUR PATCH TD SCH (08:09)
[2019-10-01] MEDS: BuPROPion HCL XL 150 MG ER TABLET PO SCH (08:09)
[2019-10-01 08:45] LABS: CHOL/HDL RATIO 3.4 (4.2-7.3)
[2019-10-01] MEDS ORDERED: SERTRALINE HCL 50 MG TABLET PO SCH (09:00)
[2019-10-01 09:58] VITALS: BP 111/57
[2019-10-01] MEDS: RisperiDONE 1 MG TABLET PO SCH (16:09)
[2019-10-01 17:49] VITALS: BP 112/69
[2019-10-02 05:07] VITALS: BP 132/71
[2019-10-02] MEDS: SERTRALINE HCL 100 MG TABLET PO SCH (08:00)
[2019-10-02] MEDS: RisperiDONE 1 MG TABLET PO SCH ×2 (08:00→16:32)
[2019-10-02] MEDS: BuPROPion HCL XL 150 MG ER TABLET PO SCH (08:00)
[2019-10-02] MEDS: NICOTINE 7 MG/24 HOUR PATCH TD SCH (08:01)
[2019-10-02 08:45] VITALS: BP 125/53
[2019-10-02 16:30] VITALS: BP 125/53
[2019-10-03 08:38] VITALS: BP 147/92
[2019-10-03] MEDS: BuPROPion HCL XL 150 MG ER TABLET PO SCH (08:54)
[2019-10-03] MEDS: RisperiDONE 1 MG TABLET PO SCH ×2 (08:54→16:01)
[2019-10-03] MEDS: SERTRALINE HCL 100 MG TABLET PO SCH (08:54)
[2019-10-03] MEDS: NICOTINE 7 MG/24 HOUR PATCH TD SCH (08:54)
[2019-10-03 17:38] VITALS: BP 140/66
[2019-10-04] MEDS: RisperiDONE 1 MG TABLET PO SCH ×2 (08:10→16:04)
[2019-10-04] MEDS: SERTRALINE HCL 100 MG TABLET PO SCH (08:10)
[2019-10-04] MEDS: BuPROPion HCL XL 150 MG ER TABLET PO SCH (08:10)
[2019-10-04] MEDS: NICOTINE 7 MG/24 HOUR PATCH TD SCH (08:12)
[2019-10-04 09:01] VITALS: BP 122/66
[2019-10-04] MEDS ORDERED: SERT100T12 PO (15:26)
[2019-10-04] MEDS ORDERED: RISP1 PO (15:26)
== END 2019-10-04 17:00 | disposition home or self-care (01) | DRG 885 ==
LOC: EMS 07:10 → 3EI 09:51
PROVIDERS: ADMIT Psychiatry & Neurology Psychiatry; ATTEND Psychiatry & Neurology Psychiatry
DX: F25.1 Schizoaffective disorder, depressive type (principal); N18.9 Chronic kidney disease, unspecified; R45.851 Suicidal ideations; F41.9 Anxiety disorder, unspecified; F14.10 Cocaine abuse, uncomplicated; F12.10 Cannabis abuse, uncomplicated; E78.5 Hyperlipidemia, unspecified; F17.210 Nicotine dependence, cigarettes, uncomplicated; J44.9 Chronic obstructive pulmonary disease, unspecified; Z79.899 Other long term (current) drug therapy
CPT/HCPCS: G0480

== ENCOUNTER 2019-10-17 13:23 | Inpatient (IN) | payer MEDICAID, OTHER ==
[~2019-10-17] VITALS: Ht 193 cm; Wt 117.0 kg
[~2019-10-17 13:23] MED LIST changes: -AMLO2.5T4 PO; +RISP1 PO; +SERT100T12 PO; -SERT50TA12 PO
[2019-10-17 14:07] LABS: APPEARANCE,URINE CLEAR (CLEAR); BILIRUBIN,URINE NEGATIVE (NEGATIVE); GLUCOSE, URINE (UA) NEGATIVE (NEGATIVE); KETONES,URINE NEGATIVE (NEGATIVE); LEUKOCYTE ESTERASE ,URINE NEGATIVE (NEGATIVE); NITRATE,URINE NEGATIVE (NEGATIVE); OCCULT BLOOD,URINE NEGATIVE (NEGATIVE); PROTEIN,URINE NEGATIVE (NEGATIVE)
[2019-10-17 14:10] LABS: EOSINOPHILS % (AUTO) 7.9 % (1.0-6.0); HEMOGLOBIN 15.3 g/dL (13.5-17.5); LYMPHOCYTES # (AUTO) 1.5 K/uL (1.0-4.8); LYMPHOCYTES % (AUTO) 27.4 % (22.0-44.0); MEAN CORPUSCULAR HEMOGLOBIN 30.4 pg (26.0-34.0); MEAN CORPUSCULAR HGB CONC 33.3 G/dL (31.0-37.0); MEAN CORPUSCULAR VOLUME 91 fL (80-100); MONOCYTES # (AUTO) 0.4 K/uL (0.1-1.0); MONOCYTES % (AUTO) 7.8 % (2.0-9.0); NEUTROPHILS # (AUTO) 3.1 K/uL (1.8-7.7); NEUTROPHILS % (AUTO) 55.9 % (40.0-70.0); PLATELET COUNT (AUTO) 223 K/uL (150-450); RED BLOOD CELL COUNT(AUTO) 5.04 MIL/uL (4.50-5.90); RED CELL DISTRIBUTION WIDTH 14.7 % (11.5-14.5)
[2019-10-17 14:12] LABS: AMPHET/METH SCREEN,URINE NEGATIVE (NEGATIVE); BARBITURATE SCREEN, URINE NEGATIVE (NEGATIVE); BENZODIAZEPINES SCREEN,URINE NEGATIVE (NEGATIVE); CANNABINOID SCREEN,URINE POSITIVE (NEGATIVE); COCAINE SCREEN,URINE POSITIVE (NEGATIVE); METHADONE SCREEN, URINE NEGATIVE (NEGATIVE); OPIATE SCREEN,URINE NEGATIVE (NEGATIVE); PHENCYCLIDINE SCREEN,URINE NEGATIVE (NEGATIVE)
[2019-10-17 14:21] LABS: ANION GAP 10 mmol/L (8-16); CALCIUM, TOTAL 9.5 mg/dL (8.8-10.5); CARBON DIOXIDE 28 mmol/L (22-29); CHLORIDE 107 mmol/L (98-107); CREATININE 1.16 mg/dL (0.60-1.30); GLOMERULAR FILTR. RATE CALC > 60 mL/min (>60); GLUCOSE,RANDOM 122 mg/dL (70-110); POTASSIUM 3.9 mmol/L (3.5-5.1); SODIUM SERUM 145 mmol/L (136-145); UREA NITROGEN, BLOOD 12 mg/dL (7-18)
[2019-10-17 14:26] LABS: ALANINE AMINOTRANSFERASE 60 U/L (12-78); ALBUMIN 3.8 g/dL (3.4-5.0); ALKALINE PHOSPHATASE 74 U/L (46-116); ASPARTATE AMINOTRANSFERASE 55 U/L (15-37); BILIRUBIN,TOTAL 0.6 mg/dL (0.1-1.0); TOTAL PROTEIN, SERUM 7.5 g/dL (6.4-8.2)
[2019-10-17] MEDS ORDERED: HALOPERIDOL 5 MG TABLET PO PRN (14:30)
[2019-10-17] MEDS ORDERED: LORazepam 2 MG TABLET PO PRN (14:30)
[2019-10-17] MEDS ORDERED: ZOLPIDEM TARTRATE 10 MG TABLET PO PRN (14:30)
[2019-10-17 16:25] VITALS: BP 117/70
[2019-10-18 00:47] VITALS: BP 128/73
[2019-10-18 08:01] LABS: CHOL/HDL RATIO 3.4 (4.2-7.3); FREE T4 (FREE THYROXINE) 1.03 ng/dL (0.76-1.46); THYROID STIMULATING HORMONE 2.39 uIU/mL (0.36-3.74)
[2019-10-18 08:04] VITALS: BP 140/83
[2019-10-18] MEDS: NICOTINE 14 MG/24 HOUR PATCH TD SCH (08:23)
[2019-10-18] MEDS ORDERED: SERTRALINE HCL 100 MG TABLET PO SCH (09:00)
[2019-10-18] MEDS ORDERED: RisperiDONE 1 MG TABLET PO SCH (09:00)
[2019-10-18] MEDS ORDERED: ACETAMINOPHEN 325 MG TABLET PO PRN (13:00)
[2019-10-18] MEDS ORDERED: TUBERCULIN, PURIFIED PROTEIN DERIVATIVE 5 TU/0.1 ML SYRINGE ID ONE (13:00)
[2019-10-18] MEDS ORDERED: PROMETHAZINE HCL 25 MG TABLET PO PRN (13:00)
[2019-10-18] MEDS ORDERED: LOPERAMIDE HCL 2 MG CAPSULE PO PRN (13:00)
[2019-10-18] MEDS ORDERED: MAGNESIUM HYDROXIDE SUSPENSION 30 ML UDCUP PO PRN (13:00)
[2019-10-18] MEDS ORDERED: HydrOXYzine PAMOATE 50 MG CAPSULE PO PRN (13:00)
[2019-10-18] MEDS ORDERED: OLANZapine 5 MG RAPDIS TABLET PO PRN (13:00)
[2019-10-18] MEDS ORDERED: GuaiFENesin/D-METHORPHAN [SUGAR-FREE] 200-20MG/10 ML SYRUP UDCUP PO PRN (13:00)
[2019-10-18] MEDS ORDERED: MAG HYDROX/AL HYDROX/SIMETH ES 30 ML SUSPENSION UDCUP PO PRN (13:00)
[2019-10-18] MEDS ORDERED: RisperiDONE 2 MG TABLET PO PRN (14:45)
[2019-10-18 16:21] VITALS: BP 125/76
[2019-10-18] MEDS: THIAMINE HCL 100 MG TABLET PO SCH (17:15)
[2019-10-18] MEDS: RisperiDONE 2 MG TABLET PO SCH (20:44)
[2019-10-18] MEDS ORDERED: OLANZapine 5 MG RAPDIS TABLET PO SCH (21:00)
[2019-10-19 00:04] VITALS: BP 122/78
[2019-10-19 08:13] VITALS: BP 117/60
[2019-10-19 08:27] LABS: HEMOGLOBIN A1C 5.9 % (3.8-5.6)
[2019-10-19] MEDS: FOLIC ACID 1 MG TABLET PO SCH (08:37)
[2019-10-19] MEDS: MULTIVITAMINS WITH MINERALS, THERAPEUTIC TABLET PO SCH (08:37)
[2019-10-19] MEDS: THIAMINE HCL 100 MG TABLET PO SCH ×2 (08:37→16:05)
[2019-10-19] MEDS: NALTREXONE HCL 50 MG TABLET PO SCH (08:37)
[2019-10-19] MEDS: NICOTINE 14 MG/24 HOUR PATCH TD SCH (08:38)
[2019-10-19 08:44] LABS: FREE T4 (FREE THYROXINE) 1.04 ng/dL (0.76-1.46); THYROID STIMULATING HORMONE 2.8 uIU/mL (0.36-3.74)
[2019-10-19] MEDS ORDERED: SERTRALINE HCL 50 MG TABLET PO SCH (09:00)
[2019-10-19] MEDS ORDERED: FLUoxetine HCL 20 MG CAPSULE PO SCH (09:00)
[2019-10-19 16:27] VITALS: BP 138/82
[2019-10-19] MEDS: RisperiDONE 2 MG TABLET PO SCH (20:40)
[2019-10-20 00:16] VITALS: BP 123/55
[2019-10-20 08:10] VITALS: BP 128/71
[2019-10-20] MEDS: MULTIVITAMINS WITH MINERALS, THERAPEUTIC TABLET PO SCH (08:52)
[2019-10-20] MEDS: NALTREXONE HCL 50 MG TABLET PO SCH (08:52)
[2019-10-20] MEDS: SERTRALINE HCL 100 MG TABLET PO SCH (08:52)
[2019-10-20] MEDS: THIAMINE HCL 100 MG TABLET PO SCH ×2 (08:53→16:51)
[2019-10-20] MEDS: FOLIC ACID 1 MG TABLET PO SCH (08:54)
[2019-10-20] MEDS: NICOTINE 14 MG/24 HOUR PATCH TD SCH (08:59)
[2019-10-20 16:09] VITALS: BP 124/62
[2019-10-20] MEDS ORDERED: RisperiDONE 2 MG TABLET PO SCH (21:00)
[2019-10-21 00:57] VITALS: BP 121/43
[2019-10-21 08:17] VITALS: BP 121/67
[2019-10-21] MEDS: MULTIVITAMINS WITH MINERALS, THERAPEUTIC TABLET PO SCH (08:33)
[2019-10-21] MEDS: FOLIC ACID 1 MG TABLET PO SCH (08:33)
[2019-10-21] MEDS: NALTREXONE HCL 50 MG TABLET PO SCH (08:33)
[2019-10-21] MEDS: SERTRALINE HCL 100 MG TABLET PO SCH (08:33)
[2019-10-21] MEDS: THIAMINE HCL 100 MG TABLET PO SCH ×2 (08:33→16:15)
[2019-10-21] MEDS: NICOTINE 14 MG/24 HOUR PATCH TD SCH (08:39)
[2019-10-21 16:36] VITALS: BP 103/61
[2019-10-21] MEDS: RisperiDONE 3 MG TABLET PO SCH (20:31)
[2019-10-22 06:34] VITALS: BP 109/55
[2019-10-22 08:07] VITALS: BP 134/69
[2019-10-22] MEDS: FOLIC ACID 1 MG TABLET PO SCH (08:28)
[2019-10-22] MEDS: THIAMINE HCL 100 MG TABLET PO SCH ×2 (08:28→16:09)
[2019-10-22] MEDS: SERTRALINE HCL 100 MG TABLET PO SCH (08:28)
[2019-10-22] MEDS: MULTIVITAMINS WITH MINERALS, THERAPEUTIC TABLET PO SCH (08:28)
[2019-10-22] MEDS: NALTREXONE HCL 50 MG TABLET PO SCH (08:28)
[2019-10-22] MEDS: NICOTINE 14 MG/24 HOUR PATCH TD SCH (08:29)
[2019-10-22 15:45] VITALS: BP 107/61
[2019-10-22 16:00] VITALS: BP 107/61
[2019-10-22] MEDS ORDERED: SERT100T12 PO (19:26)
[2019-10-22] MEDS ORDERED: NALT50TA PO (19:26)
[2019-10-22] MEDS ORDERED: RISP3 PO (19:26)
[2019-10-22] MEDS: RisperiDONE 3 MG TABLET PO SCH (20:09)
[2019-10-23 00:28] VITALS: BP 129/62
[2019-10-23] MEDS: NALTREXONE HCL 50 MG TABLET PO SCH (08:07)
[2019-10-23] MEDS: MULTIVITAMINS WITH MINERALS, THERAPEUTIC TABLET PO SCH (08:07)
[2019-10-23] MEDS: SERTRALINE HCL 100 MG TABLET PO SCH (08:07)
[2019-10-23] MEDS: NICOTINE 14 MG/24 HOUR PATCH TD SCH (08:07)
[2019-10-23] MEDS: THIAMINE HCL 100 MG TABLET PO SCH (08:07)
[2019-10-23] MEDS: FOLIC ACID 1 MG TABLET PO SCH (08:07)
[2019-10-23 08:17] VITALS: BP 105/65
== END 2019-10-23 11:20 | disposition home or self-care (01) | DRG 750 ==
LOC: EMS 13:27 → B2S 14:44
PROVIDERS: ADMIT Psychiatry & Neurology Psychiatry; ATTEND Psychiatry & Neurology Psychiatry
DX: F25.1 Schizoaffective disorder, depressive type (principal); N17.9 Acute kidney failure, unspecified; R45.851 Suicidal ideations; Z91.14 Patient's other noncompliance with medication regimen; Z59.0 Homelessness; K58.9 Irritable bowel syndrome, unspecified; J44.9 Chronic obstructive pulmonary disease, unspecified; E78.5 Hyperlipidemia, unspecified; F14.90 Cocaine use, unspecified, uncomplicated; F12.90 Cannabis use, unspecified, uncomplicated; Z91.19 Patient's noncompliance with other medical treatment and regimen; Z87.891 Personal history of nicotine dependence; Z79.899 Other long term (current) drug therapy
CPT/HCPCS: 83036; 84439; 84443; 86592; 87081; G0480

== ENCOUNTER 2022-03-04 18:44 | Emergency (ER) | payer MEDICAID, OTHER ==
[~2022-03-04 18:44] MED LIST changes: -BUPR-93 PO; +NALT50TA PO; -RISP1 PO; +RISP3TAB35 PO; +SERT-440 PO; -SERT100T12 PO
== END 2022-03-04 20:02 | disposition left against medical advice (07) ==
LOC: EMS 18:51
DX: Z53.21 Procedure and treatment not carried out due to patient leaving prior to being seen by health care provider (principal)

== ENCOUNTER 2022-03-10 07:34 | Emergency (ER) | payer OTHER ==
[~2022-03-10] VITALS: Ht 193 cm; Wt 102.3 kg
[2022-03-10] MEDS ORDERED: ACETAMINOPHEN 500 MG TABLET PO ONE (08:45)
[2022-03-10] MEDS ORDERED: PERMETHRIN 5% 60 GM CREAM TP ONE (08:45)
[2022-03-10] MEDS ORDERED: DiphenhydrAMINE HCL 25 MG CAPSULE PO ONE (08:45)
[2022-03-10] MEDS ORDERED: PERM60CR19 TP (09:13)
[2022-03-10] MEDS ORDERED: DIPH50CA37 PO (09:13)
[2022-03-10] MEDS ORDERED: ACET-66 PO (09:13)
[2022-03-10 09:53] VITALS: BP 142/85
== END 2022-03-10 09:55 | disposition home or self-care (01) ==
LOC: EMS 07:38
DX: L30.9 Dermatitis, unspecified (principal); B86 Scabies; F20.9 Schizophrenia, unspecified; F32.9 Major depressive disorder, single episode, unspecified; F10.20 Alcohol dependence, uncomplicated; F14.10 Cocaine abuse, uncomplicated; F17.210 Nicotine dependence, cigarettes, uncomplicated; Z59.00 Homelessness unspecified
CPT/HCPCS: 99284; Z7502; Z7610

== ENCOUNTER 2023-11-06 09:58 | Inpatient (IN) | payer MEDICAID, OTHER ==
[~2023-11-06] VITALS: Ht 193 cm; Wt 94.3 kg
[~2023-11-06 09:58] MED LIST changes: +ACET-66 PO; +DIPH50CA37 PO; -NALT50TA PO; +PERM60CR19 TP; -RISP3TAB35 PO; -SERT-440 PO
[2023-11-06 10:11] LABS: COVID AG,FIA SOURCE NASAL SWAB
[2023-11-06 10:22] LABS: ALCOHOL, URINE DRUG SCREEN NEGATIVE (NEGATIVE); AMPHET/METH SCREEN,URINE NEGATIVE (NEGATIVE); BARBITURATE SCREEN, URINE NEGATIVE (NEGATIVE); BENZODIAZEPINES SCREEN,URINE NEGATIVE (NEGATIVE); CANNABINOID SCREEN,URINE NEGATIVE (NEGATIVE); COCAINE SCREEN,URINE POSITIVE (NEGATIVE); METHADONE SCREEN, URINE NEGATIVE (NEGATIVE); OPIATE SCREEN,URINE NEGATIVE (NEGATIVE); PHENCYCLIDINE SCREEN,URINE NEGATIVE (NEGATIVE)
[2023-11-06 10:22] LABS: BASOPHILS % (AUTO) 0.8 % (0.0-2.0); EOSINOPHILS % (AUTO) 5.8 % (1.0-6.0); HEMOGLOBIN 14.3 g/dL (13.5-17.5); LYMPHOCYTES # (AUTO) 1.4 K/uL (1.0-4.8); LYMPHOCYTES % (AUTO) 18.4 % (22.0-44.0); MEAN CORPUSCULAR HEMOGLOBIN 30.7 pg (26.0-34.0); MEAN CORPUSCULAR HGB CONC 33.3 G/dL (31.0-37.0); MEAN CORPUSCULAR VOLUME 92 fL (80-100); MONOCYTES # (AUTO) 0.6 K/uL (0.1-1.0); MONOCYTES % (AUTO) 7.2 % (2.0-9.0); NEUTROPHILS # (AUTO) 5.2 K/uL (1.8-7.7); NEUTROPHILS % (AUTO) 67.8 % (40.0-70.0); PLATELET COUNT (AUTO) 199 K/uL (150-450); RED BLOOD CELL COUNT(AUTO) 4.66 MIL/uL (4.50-5.90); WHITE BLOOD COUNT (AUTO) 7.7 K/uL (4.5-11.0)
[2023-11-06 10:32] LABS: SARS-COV2 (COVID) ANTIGEN,FIA Negative (Negative)
[2023-11-06 10:33] LABS: ANION GAP 7 mmol/L (8-16); CALCIUM, TOTAL 8.8 mg/dL (8.8-10.5); CARBON DIOXIDE 27 mmol/L (22-29); CHLORIDE 106 mmol/L (98-107); CREATININE 1.37 mg/dL (0.60-1.30); GLOMERULAR FILTR. RATE CALC > 60 mL/min (>60); GLUCOSE,RANDOM 103 mg/dL (70-110); POTASSIUM 3.8 mmol/L (3.5-5.1); SODIUM SERUM 140 mmol/L (136-145); UREA NITROGEN, BLOOD 21 mg/dL (7-18)
[2023-11-06 10:36] LABS: ALCOHOL, BLOOD (SERUM) < 3 mg/dL (0-10)
[2023-11-06 10:39] LABS: ALANINE AMINOTRANSFERASE 16 U/L (12-78); ALBUMIN 3.3 g/dL (3.4-5.0); ALKALINE PHOSPHATASE 63 U/L (46-116); ASPARTATE AMINOTRANSFERASE 23 U/L (15-37); BILIRUBIN,TOTAL 0.7 mg/dL (0.1-1.0); TOTAL PROTEIN, SERUM 7.4 g/dL (6.4-8.2)
[2023-11-06] MEDS ORDERED: HALOPERIDOL 5 MG TABLET PO PRN (13:00)
[2023-11-06] MEDS ORDERED: LORazepam 2 MG TABLET PO PRN (13:00)
[2023-11-06] MEDS ORDERED: ZOLPIDEM TARTRATE 10 MG TABLET PO PRN (13:00)
[2023-11-06] MEDS ORDERED: PNEUMOCOCCAL VACCINE POLYVALENT 0.5 ML SYRINGE [PPSV23] IM. ONE (13:45)
[2023-11-06 20:29] VITALS: BP 143/65; PULSE 66; TEMP 97.8; O2SAT 96
[2023-11-07] MEDS ORDERED: ACETAMINOPHEN 325 MG TABLET PO PRN (07:00)
[2023-11-07] MEDS ORDERED: CloNIDine HCL 0.1 MG TABLET PO PRN (07:00)
[2023-11-07] MEDS ORDERED: MAG HYDROX/ALUMINUM HYD/SIMETH ES 30 ML SUSPENSION UDCUP PO PRN (07:00)
[2023-11-07] MEDS ORDERED: GuaiFENesin/D-METHORPHAN [SUGAR-FREE] 200-20MG/10 ML SYRUP UDCUP PO PRN (07:00)
[2023-11-07] MEDS ORDERED: PETROLATUM,WHITE 28 GM JELLY TP PRN (07:00)
[2023-11-07] MEDS ORDERED: NICOTINE 14 MG/24 HOUR PATCH TD PRN (07:00)
[2023-11-07] MEDS ORDERED: MAGNESIUM HYDROXIDE SUSPENSION 30 ML UDCUP PO PRN (07:00)
[2023-11-07] MEDS ORDERED: IBUPROFEN 400 MG TABLET PO PRN (07:00)
[2023-11-07] MEDS ORDERED: ALBUTEROL SULFATE HFA 90 MCG/PUFF 8 GM INHALER IH PRN (07:00)
[2023-11-07] MEDS ORDERED: DOCUSATE SODIUM 100 MG CAPSULE PO PRN (07:00)
[2023-11-07] MEDS ORDERED: ONDANSETRON HCL 4 MG TABLET PO PRN (07:00)
[2023-11-07] MEDS ORDERED: LOPERAMIDE HCL 2 MG CAPSULE PO PRN (07:00)
[2023-11-07 08:18] LABS: HEMOGLOBIN A1C 5.6 % (3.8-5.6)
[2023-11-07 08:23] VITALS: BP 135/68; PULSE 60; RESP 18; TEMP 97.8; O2SAT 95
[2023-11-07 08:32] LABS: CHOL/HDL RATIO 2.6 (4.2-7.3)
[2023-11-07] MEDS: CIPROFLOXACIN HCL 0.3% 2.5 ML OPHTHALMIC SOLUTION OU SCH (09:42)
[2023-11-07] MEDS: RisperiDONE 1 MG TABLET PO SCH (10:36)
[2023-11-07 20:21] VITALS: BP 128/62; PULSE 73; RESP 17; TEMP 97.5; O2SAT 96
[2023-11-08 05:07] LABS: HEPATITIS C AB (EIA) Non Reactive (Non Reactive)
[2023-11-08 08:15] VITALS: BP 136/63; PULSE 63; RESP 17; TEMP 98.7; O2SAT 95
[2023-11-08 09:08] LABS: HEMOGLOBIN A1C 5.5 % (3.8-5.6)
[2023-11-08 09:17] LABS: THYROID STIMULATING HORMONE 3.4 uIU/mL (0.36-3.74)
[2023-11-08] MEDS ORDERED: RISP-31 PO (16:30)
== END 2023-11-08 18:20 | disposition home or self-care (01) | DRG 750 ==
LOC: EMS 09:58 → B3A 10:59
PROVIDERS: ADMIT Psychiatry & Neurology Child & Adolescent Psychiatry; ATTEND Psychiatry & Neurology Child & Adolescent Psychiatry
DX: F25.9 Schizoaffective disorder, unspecified (principal); N17.9 Acute kidney failure, unspecified; K58.9 Irritable bowel syndrome, unspecified; F17.210 Nicotine dependence, cigarettes, uncomplicated; F10.90 Alcohol use, unspecified, uncomplicated; Z20.822 Contact with and (suspected) exposure to COVID-19; F14.10 Cocaine abuse, uncomplicated; F32.A Depression, unspecified; R45.851 Suicidal ideations; Z79.899 Other long term (current) drug therapy
CPT/HCPCS: 80053; 80061; 80307; 83036; 84443; 85025; 86803; 87340; G0480

== ENCOUNTER 2024-06-26 09:17 | Emergency (ER) | payer MEDICAID, OTHER ==
[~2024-06-26] VITALS: Ht 193 cm; Wt 104.5 kg
[~2024-06-26 09:17] MED LIST changes: -ACET-66 PO; -DIPH50CA37 PO; -PERM60CR19 TP; +RISP-31 PO
[2024-06-26 09:24] VITALS: BP 115/59; PULSE 66; RESP 16; TEMP 98.2; O2SAT 98
[2024-06-26 09:34] LABS: COVID AG,FIA SOURCE NASAL SWAB
[2024-06-26] MEDS ORDERED: DIPH50CA37 PO (09:41)
[2024-06-26] MEDS ORDERED: TRAZ-257 PO (09:41)
[2024-06-26 09:51] LABS: HEMATOCRIT 47.7 % (41-53); HEMOGLOBIN 15.9 g/dL (13.5-17.5); MEAN CORPUSCULAR HEMOGLOBIN 30.3 pg (26.0-34.0); MEAN CORPUSCULAR HGB CONC 33.3 G/dL (31.0-37.0); MEAN CORPUSCULAR VOLUME 91 fL (80-100); PLATELET COUNT (AUTO) 176 K/uL (150-450); RED BLOOD CELL COUNT(AUTO) 5.24 MIL/uL (4.50-5.90); RED CELL DISTRIBUTION WIDTH 14.5 % (11.5-14.5); WHITE BLOOD COUNT (AUTO) 3.5 K/uL (4.5-11.0)
[2024-06-26 09:53] LABS: SARS-COV2 (COVID) ANTIGEN,FIA Negative (Negative)
[2024-06-26 09:54] LABS: INFLUENZA TYPE A NEGATIVE FOR TYPE A (NEGATIVE); INFLUENZA TYPE B POSITIVE FOR TYPE B (NEGATIVE)
[2024-06-26 10:00] LABS: CALCIUM, TOTAL 8.6 mg/dL (8.8-10.5); CREATININE 1.67 mg/dL (0.60-1.30); POTASSIUM 4.1 mmol/L (3.5-5.1)
[2024-06-26 10:20] LABS: BAND NEUTROPHILS % (MANUAL) 0 % (0-5)
[2024-06-26 10:23] LABS: LYMPHOCYTES % (MANUAL) 25 % (22-44); MONOCYTES % (MANUAL) 27 % (2-9); RBC MORPHOLOGY COMMENT NORMAL RBC MORPH; SEGMENTED NEUTROPHILS % 48 % (40-70); TOTAL CELLS COUNTED 100
[2024-06-26] MEDS ORDERED: GUAIFDM PO (10:33)
[2024-06-26] MEDS ORDERED: ACET-66 PO (10:33)
[2024-06-26] MEDS ORDERED: IBUP-1554 PO (10:33)
[2024-06-26] MEDS: ACETAMINOPHEN 500 MG TABLET PO ONE (10:36)
[2024-06-26] MEDS: GuaiFENesin/D-METHORPHAN [SUGAR-FREE] 200-20MG/10 ML SYRUP UDCUP PO ONE (10:36)
[2024-06-26] MEDS: IBUPROFEN 600 MG TABLET PO ONE (10:36)
== END 2024-06-26 10:43 | disposition home or self-care (01) ==
LOC: EMS 09:22
DX: G47.00 Insomnia, unspecified (principal); F25.1 Schizoaffective disorder, depressive type; J10.1 Influenza due to other identified influenza virus with other respiratory manifestations; F17.210 Nicotine dependence, cigarettes, uncomplicated; F14.90 Cocaine use, unspecified, uncomplicated; Z20.822 Contact with and (suspected) exposure to COVID-19
CPT/HCPCS: 80048; 85025; 87804; 99284

== ENCOUNTER 2024-09-19 09:45 | Emergency (ER) | payer OTHER ==
[~2024-09-19] VITALS: Ht 193 cm; Wt 104.5 kg
[~2024-09-19 09:45] MED LIST changes: +ACET-66 PO; +DIPH50CA37 PO; +GUAIFDM PO; +IBUP-1554 PO; +TRAZ-257 PO
[2024-09-19 10:07] VITALS: TEMP 98
[2024-09-19] MEDS ORDERED: DOXY-354 PO (11:22)
[2024-09-19] MEDS ORDERED: CEPH-558 PO (11:22)
[2024-09-19] MEDS ORDERED: CLOT15CR75 TP (11:22)
[2024-09-19 11:47] VITALS: BP 149/82; PULSE 64; RESP 16; O2SAT 99
== END 2024-09-19 11:49 | disposition home or self-care (01) ==
LOC: EMS 09:47
DX: L30.9 Dermatitis, unspecified (principal); F20.9 Schizophrenia, unspecified; F32.A Depression, unspecified; K58.9 Irritable bowel syndrome, unspecified; F17.210 Nicotine dependence, cigarettes, uncomplicated; F14.90 Cocaine use, unspecified, uncomplicated
CPT/HCPCS: 99283; Z7502